=== PATIENT | female | born 1985 | race Two or more races ===

== ENCOUNTER 2024-11-18 18:07 | Emergency (ER) | payer MEDICAID ==
[~2024-11-18] VITALS: Ht 165.1 cm; Wt 82.0 kg
[2024-11-18 18:10] VITALS: O2SAT 99
[2024-11-18] MEDS: MORPHINE SULFATE 4 MG/ML INJ (FOR IV/IM USE) IV ONE (18:58)
[2024-11-18 19:10] LABS: BASOPHILS % 0.8 % (0.0-2.0); EOSINOPHILS % 0.6 % (0.0-5.0); HEMATOCRIT. 37.6 % (36.0-48.0); HEMOGLOBIN. 11.8 g/dL (12.0-16.0); LYMPHOCYTES % 16.6 % (20.0-50.0); MEAN CORPUSCULAR HEMOGLOBIN 21.8 pg (28.0-32.0); MEAN CORPUSCULAR HGB CONC 31.4 g/dL (31.0-37.0); MEAN CORPUSCULAR VOLUME 69.4 fL (81.0-99.0); MEAN PLATELET VOLUME 8.6 fl (7.4-10.4); MONOCYTES % 6.4 % (2.0-8.0); NEUTROPHILS % 75.6 % (40.0-76.0); PLATELET 208 x1000/uL (130-400); RED BLOOD CELL COUNT 5.43 mill/uL (4.2-5.4); RED CELL DISTRIBUTION WIDTH 17.3 % (11.6-14.6); WHITE BLOOD COUNT 8.8 x1000/uL (4.5-11.0)
[2024-11-18] MEDS: ONDANSETRON HCL 4MG/2ML INJ IV NR (19:10)
[2024-11-18 19:12] LABS: ADD RBC MORPHOLOGY YES; DIFFERENTIAL COMMENT 1
[2024-11-18 19:16] LABS: CHLORIDE 107 mEq/L (98-107); POTASSIUM 3.7 mEq/L (3.5-5.1); SODIUM 141 mEq/L (136-145)
[2024-11-18 19:17] LABS: CARBON DIOXIDE 27 mEq/L (21-32)
[2024-11-18 19:22] LABS: CREATININE 0.9 mg/dL (0.6-1.0); GLUCOSE 100 mg/dL (70-105); TROPONIN I HIGH SENSITIVITY 10 ng/L (3.0-34); UREA NITROGEN BLOOD 15 mg/dL (9-23)
[2024-11-18 19:24] LABS: ALANINE AMINOTRANSFERASE 18 IU/L (10-49); ASPARTATE AMINOTRANSFERASE 16 IU/L (<34); BILIRUBIN DIRECT < 0.1 mg/dL (<=3.0); BILIRUBIN TOTAL 0.3 mg/dL (0.1-1.0); PROTEIN TOTAL 7.2 g/dL (6.0-8.3)
[2024-11-18 19:57] LABS: INR 1.1; PARTIAL THROMBOPLASTIN TIME 24.3 sec (23.4-31.0); PROTHROMBIN TIME 11.5 sec (9.6-11.0)
[2024-11-18] MEDS: LABETALOL 5MG/ML 4ML INJ IV ONE (20:03)
[2024-11-18 20:21] LABS: PLATELET ESTIMATE NORMAL
[2024-11-18 20:22] LABS: GIANT PLATELETS 1+; HYPOCHROMASIA 2+; MICROCYTOSIS 2+
[2024-11-18 20:58] LABS: TROPONIN I HIGH SENSITIVITY 9 ng/L (3.0-34)
[2024-11-18 21:04] LABS: HCG SCREEN NEGATIVE
[2024-11-18 22:00] VITALS: BP 155/101; PULSE 73; RESP 24; TEMP 36.8; O2SAT 99
== END 2024-11-19 00:22 | disposition admitted as inpatient to this hospital (09) ==
LOC: ER 18:07
DX: I16.0 Hypertensive urgency (principal); F19.90 Other psychoactive substance use, unspecified, uncomplicated
CPT/HCPCS: 80076; 80048; 84703; 83880; 83690; 85025; 85610; 85730; 84484; 36415; 71045; 76705; 93005; 96374; 96375; 99291; J3490; J2405; J2270; Z7610; A4606